=== PATIENT | female | born 2000 | race Caucasian/White ===

== ENCOUNTER 2021-01-13 06:00 | Emergency (ER) | payer SELFPAY ==
[~2021-01-13] VITALS: Ht 152.4 cm; Wt 52.2 kg
[2021-01-13 06:00] VITALS: BP 104/72
--- NOTE | 2021-01-13 06:00 | NUR ---
BIBA TAKEN TO BED #12
--- NOTE | 2021-01-13 06:25 | NUR ---
BROUGHT IN BY AMBULANCE WITH POST SEIZURE TONIC -CLONIC LASTED FOR 3 MINUTES STATED BY [facility] STAFF, PATIENT ALERT, AWAKE , ORIENTED, AMBULATORY. DENIES PAIN, N/V/D, FEVER, C/P, AND SOB. SEIZURE WAS WITNESSED, PER PATIENT GF FOUND HER FOAMING AT THE MOUTH WITH EYES ROLLED BACK OF THE HEAD. PATIENT AAOX4 AND GCS 15 AT THIS TIME. PMH: SEIZUREM, BLOOD CLOT IN THE BRAIN NKA
[2021-01-13] MEDS: NACL 0.9% 1,000 ML IV ONE (06:44)
[2021-01-13] MEDS: LORazepam 2 MG/ML VIAL IVP ONE (06:44)
--- NOTE | 2021-01-13 07:17 | NUR ---
Pt report given to JESSICA Novak. Transfer of care at this time.
[2021-01-13 07:26] LABS: BASOPHILS % (AUTO) 0.3 % (0.0-2.0); EOSINOPHILS # (AUTO) 0.1 K/uL (0-0.4); EOSINOPHILS % (AUTO) 0.8 % (0.0-4.0); HEMATOCRIT 44.2 % (36-48); HEMOGLOBIN 14.7 g/dL (12.0-16.0); LYMPHOCYTES # (AUTO) 3.3 K/uL (2.5-16.5); LYMPHOCYTES % (AUTO) 22.9 % (20.5-51.1); MEAN CORPUSCULAR HEMOGLOBIN 30 pg (27-31); MEAN CORPUSCULAR HGB CONC 33 g/dL (33-37); MEAN CORPUSCULAR VOLUME 88.9 fL (80-94); MONOCYTES # (AUTO) 0.9 K/uL (0.8-1.0); MONOCYTES % (AUTO) 6.2 % (1.7-9.3); NEUTROPHILS % (AUTO) 69.8 % (42.2-75.2); PLATELET COUNT (AUTO) 371 K/uL (140-450); RED BLOOD CELL COUNT(AUTO) 4.98 MIL/uL (4.20-5.40); RED CELL DISTRIBUTION WIDTH 13.5 % (11.6-13.7); WHITE BLOOD COUNT (AUTO) 14.3 K/uL (4.8-10.8)
--- NOTE | 2021-01-13 07:45 | NUR ---
PATIENT APPEARS TO BE RESTING, ON BEDSIDE CODING MANAGER, VSS. ALL NEEDS MET AT THIS TIME.
[2021-01-13 08:02] LABS: ALBUMIN 4.1 g/dL (3.4-5.0); ANION GAP 14.3 (8-16); ASPARTATE AMINOTRANSFERASE 47 U/L (15-37); CARBON DIOXIDE 27.1 mmol/L (21-32); CHLORIDE 103 mmol/L (98-107); CREATININE 0.6 mg/dL (0.6-1.3); GFR ARICAN-AMERICAN 162 mL/min (>90); GLUCOSE 90 mg/dL (74-106); SODIUM SERUM 139 mmol/L (136-145); TOTAL BILIRUBIN 0.8 mg/dL (0.0-1.0); UREA NITROGEN, BLOOD 9 mg/dL (7-18)
[2021-01-13 08:03] LABS: POTASSIUM 5.4 mmol/L (3.5-5.1)
--- NOTE | 2021-01-13 08:15 | NUR ---
DR. VILLANUEVA BEDSIDE REEVALUATING PATIENT.
[2021-01-13 08:47] LABS: BARBITURATE, URINE NEGATIVE ng/ml (NEG <=200); BENZODIAZEPINE, URINE NEGATIVE ng/mL (NEG <=200); CANNABINOID, URINE POSITIVE ng/mL (NEG <=50); COCAINE, URINE NEGATIVE ng/mL (NEG <=300); OPIATE, URINE NEGATIVE ng/mL (NEG <=2000); PHENCYCLIDINE SCREEN,URINE NEGATIVE ng/mL (NEG <=25)
[2021-01-13] MEDS ORDERED: ATI.5 PO (09:17)
--- NOTE | 2021-01-13 09:59 | NUR ---
Patient does not wish to proceed with medical care recommended by DR. VILLANUEVA. Patient given information related to possible complications, up to and including , which could occur as a result of leaving hospital at this time. Patient verbalizes understanding of risks involved leaving against medical advice. Patient has signed AMA form.
[2021-01-13 10:00] VITALS: BP 98/63
--- NOTE | 2021-01-14 19:32 | NUR ---
LATE ENTRY- NORMAL SALINE 0.9% DISCONTINUED AT 0730
== END 2021-01-13 10:01 | disposition left against medical advice (07) ==
LOC: MED 06:00
DX: R56.9 Unspecified convulsions (principal); F12.10 Cannabis abuse, uncomplicated
CPT/HCPCS: 36415; 70450; 80053; 80305; 84703; 85025; 96361; 96374; 99285; G0482; J2060; J7030